=== PATIENT | female | born 1985 | race Caucasian/White ===

== ENCOUNTER 2019-02-26 15:38 | Emergency (ER) | payer MEDICAID ==
[~2019-02-26] VITALS: Ht 170.2 cm; Wt 86.2 kg
[2019-02-26 15:43] VITALS: BP 153/93
--- NOTE | 2019-02-26 15:58 | NUR ---
BIB SELF TO THE ED WITH THE CHIEF C/O LEFT CHEST PAIN SINCE 06:30 AM THIS MORNING. NO SOB OR ACUTE RESPIRATORY DISTRESS NOTED. DENIES DIFFICULTY BREATHING. LUNGS CLEAR. DENIES NAUSEA OR VOMITING. DENIES DIZZINESS. DENIES ANY OTHER PROBLEM. STATES " I AM JUST TIRED." VSS. ER MD AWARE.
--- NOTE | 2019-02-26 16:01 | NUR ---
PT BEING SEEN BY ER AT THIS TIME.
[2019-02-26] MEDS ORDERED: KETOROLAC 30 MG/ML VIAL IM ONE (16:15)
[2019-02-26 16:39] LABS: BASOPHILS % (AUTO) 0.4 % (0.0-2.0); EOSINOPHILS % (AUTO) 0.6 % (0.0-4.0); HEMATOCRIT 42.3 % (36-48); HEMOGLOBIN 13.7 g/dL (12.0-16.0); LYMPHOCYTES # (AUTO) 2.4 K/uL (2.5-16.5); LYMPHOCYTES % (AUTO) 40.6 % (20.5-51.1); MEAN CORPUSCULAR HEMOGLOBIN 28 pg (27-31); MEAN CORPUSCULAR HGB CONC 32 g/dL (33-37); MEAN CORPUSCULAR VOLUME 85.3 fL (80-94); MONOCYTES # (AUTO) 0.3 K/uL (0.8-1.0); MONOCYTES % (AUTO) 5.7 % (1.7-9.3); NEUTROPHILS # (AUTO) 3.2 K/uL (1.8-7.7); NEUTROPHILS % (AUTO) 52.7 % (42.2-75.2); PLATELET COUNT (AUTO) 194 K/uL (140-450); RED BLOOD CELL COUNT(AUTO) 4.96 MIL/uL (4.20-5.40)
[2019-02-26 16:53] LABS: ANION GAP 15.5 (8-16); CARBON DIOXIDE 25.2 mmol/L (21-32); CREATININE 0.9 mg/dL (0.6-1.3); POTASSIUM 3.7 mmol/L (3.5-5.1)
[2019-02-26 16:59] LABS: TOTAL BILIRUBIN 0.4 mg/dL (0.0-1.0)
[2019-02-26 17:57] VITALS: BP 130/81
--- NOTE | 2019-02-26 17:57 | NUR ---
Patient discharged with v/s stable. Written and verbal after care instructions given and explained. Patient alert, oriented and verbalized understanding of instructions. Ambulatory with steady gait. All questions addressed prior to discharge. ID band removed. Patient advised to follow up with PMD. Rx of NORCO AND NAPROSYN given. Patient educated on indication of medication including possible reaction and side effects. Opportunity to ask questions provided and answered.
== END 2019-02-26 17:51 | disposition home or self-care (01) ==
LOC: MED 15:38
DX: R07.89 Other chest pain (principal)
CPT/HCPCS: 36415; 71045; 80053; 81025; 84484; 85025; 85379; 93005; 96372; 99284; J1885; Q0092